=== PATIENT | male | born 1990 | race Caucasian/White ===

== ENCOUNTER 2020-04-05 21:09 | Emergency (ER) | payer MEDICAID, SELFPAY ==
--- NOTE | 2020-04-05 23:02 | PC.NURSE ---
Attempted to Triage pt and he has left.
[2020-04-05 23:03] VITALS: BP 000/00; PULSE 0; RESP 0; TEMP -17.7; TEMP 0; O2SAT 0
== END 2020-04-05 23:05 | disposition left against medical advice (07) ==
PROVIDERS: Emergency Provider Emergency Medicine
DX: Z53.21 Procedure and treatment not carried out due to patient leaving prior to being seen by health care provider (principal)
CPT/HCPCS: 99211

== ENCOUNTER 2020-04-09 01:00 | Emergency (ER) | payer MEDICAID, SELFPAY ==
[2020-04-09 01:08] VITALS: BP 159/99; PULSE 98; RESP 18; TEMP 36.7; O2SAT 98; BMI 23.7
--- NOTE | 2020-04-09 01:20 | [facility].EDDENT ---
ED Disposition Clinical Impression: Pain, dental, Infected dental caries Disposition: Home, Self-Care Condition on Discharge: Good Instructions: DI for Dental Pain Additional Instructions: see pcp and dentist Prescriptions: cephALEXin [cephALEXin 500mg capsule*] 500 mg PO TID #30 cap Transmission Status: Pending to [facility] Ketorolac Tromethamine [Toradol 10mg tablet] 10 mg PO Q6H 3 Days #12 tab Transmission Status: Pending to [facility] Referrals: PCP,No [Primary Care Provider] - - Critical Care Critical Care Time: No Attestation: On 04/09/20, the high probability of a clinically significant, sudden or life threatening deterioration of the following system(s) required my full and direct attention, intervention and personal management. The time I documented below is in addition to time spent performing reported procedures but includes the following listed in this critical care notation. Medical Decision Making - Medical Records Medical records reviewed: Yes: I reviewed the patient's medical records. - Xavi Inquiry Pt receiving controlled substance: No Vital Signs: 04/09/20 01:08 Temperature 98.0 F Temperature Source Oral Pulse Rate [Right] 98 H Respiratory Rate 18 Blood Pressure [Right Arm] 159/99 H Blood Pressure Mean [Right Arm] 119 Blood Pressure Source [Right Arm] Automatic Cuff Blood Pressure Position [Right Arm] Sitting 02 Sat by Pulse Oximetry 98 Oxygen Delivery Method Room Air Dental HPI - General Chief complaint: Dental/Oral Stated complaint: tooth pain Time Seen by Provider: 04/09/20 01:20 Mode of Arrival: Ambulatory Source of Information: Patient, Medical Record Limitations: No Limitations Description of Symptoms (Recalled from ER Triage Doc. by RN): Pt states he has had left dental pain for a while now and hasn't been able to find a dentist. - History of Present Illness HPI Narrative: acute worsening of dental pain over the last week MD Complaint: tooth pain Onset (ago): day(s) Severity: moderate Context: history of dental caries, poor dental care Treatment prior to arrival: none - Related Data Previous Rx's Medication Instructions Recorded Ketorolac Tromethamine [Toradol 10 mg PO Q6H 3 Days #12 tab 04/09/20 10mg tablet] cephALEXin [cephALEXin 500mg 500 mg PO TID #30 cap 04/09/20 capsule*] Allergies Allergy/AdvReac Type Severity Reaction Status Date / Time No Known Allergies Allergy Verified 04/09/20 01:18 [facility] History - Hepatitis A Screen Drug use history?: No High risk sexual behaviors?: No History of sexually transmitted infection?: No Currently employed?: No Childcare worker?: No Do you have indoor plumbing?: Yes Do you have electricity?: Yes Attestation statement:: This patient has been screened for Hepatitis A risk factors. I have reviewed the patient's past medical history: Yes Medical History: Denies:: Diabetes Mellitus Type 1, Diabetes Mellitus Type 2 - Social History Smoking Status: Current every day smoker Tobacco Type: cigarettes # Packs/Day (cigarettes): 1 Alcohol Intake: never Occupational Status: employed ROS Obtained: Yes All systems reviewed & no additional complaints - Constitutional Constitutional: Denies fever(s) - Eyes Eyes: Denies change in vision - ENT Ears, Nose, Mouth, and Throat: Reports as per HPI, Reports dental pain, Denies sore throat, Denies throat swelling - Cardiovascular Cardiovascular: Denies chest pain - Respiratory Respiratory: Denies cough - Gastrointestinal Gastrointestingal: Denies: abdominal pain - Genitourinary Male Genitourinary: Denies hematuria - Musculoskeletal Musculoskeletal: Denies joint pain - Integumentary/Breasts Skin/Breast: Denies rash - Neurologic Neurologic: Denies seizure-like activity Physical Exam - General General appearance: alert - Head Head exam: normocephalic - Eye Eye exam: Present: PERRL, EOMI.
[2020-04-09 01:30] VITALS: BP 156/92; PULSE 90; RESP 16; TEMP 36.7; O2SAT 99
== END 2020-04-09 01:32 | disposition home or self-care (01) ==
PROVIDERS: Emergency Provider Emergency Medicine
DX: K02.9 Dental caries, unspecified (principal); F17.210 Nicotine dependence, cigarettes, uncomplicated
CPT/HCPCS: 96372; 99281